=== PATIENT | female | born 1945 | race Hispanic/Latino ===

== ENCOUNTER 2020-02-11 07:19 | Outpatient (CLI) | payer MEDICARE, OTHER ==
[2020-02-11 16:43] LABS: #Eosinphils 0.2 thou/uL (0.0-0.7); #Lymphocytes 2.1 thou/uL (1.20-3.40); #Monocytes 0.6 thou/uL (0.11-0.59); #Neutrophils 4.6 thou/uL (1.40-6.50); %Basophils 0.6 % (0.0-1.0); %Eosinophils 2.4 % (0.0-10.0); %Lymphocytes 28.3 % (21.0-51.0); %Monocytes 7.8 % (0.0-10.0); %Neutrophils 60.9 % (42.0-75.0); Hemoglobin 13.8 g/dL (12.0-16.0); Mean Corpuscular HGB CONC 32.9 g/dL (32.0-36.0); Mean Corpuscular Hemoglobin 28.6 pg (27.0-31.0); Mean Corpuscular Volume 86.7 fL (78.0-98.0); Mean Platelet Volume 8.7 fL (7.4-10.4); Platelet Count 310 thou/uL (130-400); RBC Distribution Width 12.9 % (11.5-14.5); Red Blood Cell (RBC) Count 4.85 mill/uL (4.20-5.40); White Blood Cell (WBC) Count 7.5 thou/uL (4.8-10.8)
[2020-02-11 16:45] LABS: Prothrombin Time 13.4 sec (12.0-14.7)
[2020-02-11 17:14] LABS: Anion Gap 13 mmol/L (10-20); BUN (Urea Nitrogen) 19 mg/dL (9.8-20.1); Calc. Creatinine Clearance 0 mL/min (70-130); Calcium 9.3 mg/dL (7.8-10.44); Carbon Dioxide 23 mmol/L (23-31); Chloride 108 mmol/L (98-107); Estimated GFR-MDRD 80; Glucose 99 mg/dL (83-110); Potassium 4.3 mmol/L (3.5-5.1); Sodium 140 mmol/L (136-145)
[2020-02-12 12:15] LABS: SARS-CoV-2 MS2 Positive; SARS-CoV-2 N Gene Negative; SARS-CoV-2 S Gene Negative; SARS-CoV-2 orf1ab Negative
== END 2020-02-11 07:20 | disposition home or self-care (01) ==
LOC: LABBT 07:19
PROVIDERS: ATTEND Orthopaedic Surgery
DX: Z01.812 Encounter for preprocedural laboratory examination (principal); Z11.59 Encounter for screening for other viral diseases; M17.0 Bilateral primary osteoarthritis of knee
CPT/HCPCS: 80048; 85025; 85610; 87081; U0003; 87635; 93005; 93010

== ENCOUNTER 2020-02-15 05:55 | Observation (INO) | payer MEDICARE ==
[2020-02-10 11:44] VITALS: BMI 33.2
[2020-02-15] MEDS ORDERED: Fentanyl 100 MCG/2 ML VIAL ONE ×3 (06:25→09:37)
[2020-02-15] MEDS ORDERED: Midazolam HCl 2 mg/2 ml Vial ONE (06:25)
[2020-02-15] MEDS ORDERED: Vancomycin 1 GM/200 ML BAG ONE (06:36)
[2020-02-15] MEDS ORDERED: Tranexamic Acid 1,000 MG/10 ML VIAL ONE (06:36)
[2020-02-15] MEDS ORDERED: Sodium Chloride 0.9% 100 ML ONE (06:36)
[2020-02-15] MEDS ORDERED: Lidocaine 1% w/Epinephrine 1:100K 20 ML VIAL ONE (06:37)
[2020-02-15] MEDS ORDERED: Bupivacaine 0.25% HCL 30 ML VIAL ONE (06:37)
[2020-02-15] MEDS ORDERED: Zolpidem Tartrate 5 MG TAB PO PRN (07:06)
[2020-02-15] MEDS ORDERED: traMADol HCl 50 MG TAB PO PRN ×2 (07:06)
[2020-02-15] MEDS ORDERED: Ropivacaine HCl/PF 250 ML in Premix Bag 1 BAG NERVE BLCK SCH (07:06)
[2020-02-15] MEDS ORDERED: HYDROcodone/Acetaminophen 10/325 mg Tablet PO PRN (07:06)
[2020-02-15] MEDS ORDERED: Promethazine HCl 25 MG/ML VIAL IM PRN ×2 (07:06→09:20)
[2020-02-15] MEDS ORDERED: Fentanyl 100 MCG/2 ML VIAL IV PRN (07:06)
[2020-02-15] MEDS ORDERED: Ondansetron PF 4 MG/2 ML Vial IVP PRN (07:06)
[2020-02-15] MEDS ORDERED: diphenhydrAMINE 25 MG CAP PO PRN (09:17)
[2020-02-15] MEDS ORDERED: Acetaminophen 325 MG TAB PO PRN (09:17)
[2020-02-15] MEDS ORDERED: Promethazine HCl 25 MG/ML VIAL SLOW IVP PRN (09:20)
[2020-02-15] MEDS ORDERED: Ondansetron HCl/PF 4 MG/2 ML Vial IVP PRN (09:20)
--- NOTE | 2020-02-15 09:56 | RAD ---
XR Knee Lt 2 View HISTORY: Left TKA COMPARISON: None. FINDINGS: There are recent postoperative changes of total knee arthroplasty in good position and alig nment. Soft tissue air is present.
--- NOTE | 2020-02-15 10:39 | HP ---
HISTORY OF PRESENT ILLNESS: Ms. Jang is a 74-year-old female, who has failed conservative measures for bilateral knee osteoarthritis. Pain is from 5 to 10 out of 10. Weight reduction, anti-inflammatories, injections gave her relief, but have diminished in efficacy. The patient desires to have left total knee arthroplasty. PAST MEDICAL HISTORY: Bilateral knee pain. ALLERGIES: NO KNOWN ALLERGIES. MEDICATIONS: Meloxicam, Aleve. PAST SURGICAL HISTORY: None. SOCIAL HISTORY: Nonsmoker. No alcohol. The patient is retired. PHYSICAL EXAMINATION: GENERAL: An alert and oriented female, in no acute distress, resting in bed, Faroese speaking. EXTREMITIES: Left lower extremity, there is mild tenderness to palpation, passive range of motion 0 to 110, neurovascularly intact. Negative Homans. Antalgic gait. DIAGNOSTIC STUDIES: Previous radiographs show left knee osteoarthritic changes. ASSESSMENT AND PLAN: The patient has failed conservative measures, elected to proceed left knee arthroplasty. I discussed with her the risks and benefits of surgery. She understands the risks to include pain; scar; bleeding; infection; damage to vital structures; decreased range of motion or strength; fracture; failure of hardware; need for revision; damage to nerve, artery, tendon, muscle, bone; DVT , human and anesthesia complications. The patient understood the risks and benefits, elected to proceed. The patient will be taken to the operative suite today for left total knee arthroplasty. Job ID: [id number] [facility]
[2020-02-15] MEDS ORDERED: Ondansetron PF 4 MG/2 ML Vial ONE (11:24)
[2020-02-15] MEDS ORDERED: EPHEDRINE 25 MG/5 ML SYRINGE ONE (11:24)
[2020-02-15] MEDS ORDERED: Ketorolac Tromethamine 30 MG/ML VIAL ONE (11:24)
[2020-02-15] MEDS ORDERED: Dexamethasone 20 MG/5 ML VIAL ONE (11:24)
[2020-02-15] MEDS ORDERED: PROPOFOL 200 MG/20 ML VIAL ONE (11:24)
[2020-02-15] MEDS ORDERED: Ropivacaine 0.2% HCl/PF (40 MG/20 ML VIAL) ONE (11:25)
[2020-02-15] MEDS ORDERED: Bupivacaine HCl 0.5%/Epinephrine 1:200,000/PF 30 ml Vial ONE (11:25)
[2020-02-15] MEDS: Sodium Chloride 0.9% 1,000 ML IV SCH ×2 (11:53→20:48)
[2020-02-15] MEDS: Ketorolac Tromethamine 30 MG/ML VIAL IVP SCH ×3 (12:51→23:26)
--- NOTE | 2020-02-15 15:54 | OP ---
DATE OF PROCEDURE: 02/15/2020 PREOPERATIVE DIAGNOSIS: Left knee osteoarthritis. POSTOPERATIVE DIAGNOSIS: Left knee osteoarthritis. PROCEDURE PERFORMED: Left total knee arthroplasty. SURGEON: Ankit Walls MD WELLNESS GUIDE: Raissa Valentino. ANESTHESIA: [place]. The patient received an adductor canal catheter and iPACK. ESTIMATED BLOOD LOSS: Less than 100 mL. TOURNIQUET TIME: 74 minutes at 300 mmHg. ANTIBIOTICS: Ancef 2 g, vancomycin 1.1 g, TXA 1 g. IMPLANTS: The patient received a Triathlon size 2 tibial base plate, a 2 CS x 13 mm poly, a size 2 CR femur, and an S27 Triathlon patella. COMPLICATIONS: PCL transection. HISTORY OF PRESENT ILLNESS: Ms. Jang is a 74-year-old female, who presents with bilateral knee osteoarthritis. The patient has limitations of night pain. Pain is severe. She has failed conservative measures. I discussed with her the risks and benefits of left total knee arthroplasty to include pain, scar, bleeding, infection, damage to vital structures, decreased range of motion and strength, continued pain despite surgical intervention, loss of life or limb. The patient understood the risks and benefits of the procedure and elected to proceed. DESCRIPTION OF PROCEDURE: Time-out was performed designating the patient's left lower extremity as the operative site based on site, consents, and marking. After time-out, the patient left lower extremity was prepped and draped in sterile fashion. Tourniquet was brought up and left for a total of 74 minutes. Anterior midline procedure was placed, dissected down and did a medial patellar arthrotomy, everted, took the fat pad, did medial soft tissue release of the superficial PCL. We everted the patella, brought the femur up in position. We took the synovium and muscle off the distal femur and exposed distal half of it for cut and sizing. We pinned our femur into place. We cut 8, 9, 0 degrees of varus and valgus and 4 degrees of slope, just a mild notching, removed all the bone and osteophytes, placed our 3-degree external rotation guide into position. We mapped. We first thought there was about 3 to 2, so we pinned a 3 tray, cut the anterior cut and moved back to 2. We cut the anterior, posterior, and chamfer cuts. On one of the cuts, the PCL, was injured, damaged in the cut, the side cut with a posterior cut, and was transected. With pickle fork, removed all the bone spurs and osteophytes from the distal femur and our cuts, anterior, posterior, and chamfer cuts, we placed the pickle fork, exposed the patient's tibia, pinned the tibial tray into place. We cut it at 2, 4, 0 degrees of varus and valgus and 4 degrees of slope, removed the bone. We did a medial decompression, there was a large medial osteophyte, which gave us some medial laxity. Being happy with our tibia, we then placed our lamina spreaders, removed bone spurs and osteophytes, all menisci, ACL, and PCL that previously had been transected. We then pinned our tray into position in line with the tibia but measured one-third down the tibia. We placed an 11, moved up to a 13 poly. The patient had just 1+ varus laxity, stable anterior-posterior drawer, had good extension, and good stability laterally. We then moved backed. We drilled our lugs for our femur, cut our keel for our tibia. Removed all the implants. We had everted our patella and cut it down from about 20 down to about 11, put an S27, which tracked well. We then removed all the implants, washed. We placed the tibia, removed the excess cement, placed the poly, placed the femur, removed excess cement. We placed the patella, removed excess cement. Washed, ensured all the cement was removed and we then placed the patient in a flexed position, closed our arthrotomy with 2 Vicryl, 2 Stratafix, 0 Stratafix, 2-0 Stratafix, and glue. The patient can be weightbear as tolerated, will be followed inhouse. Job ID: [id number] [facility]
[2020-02-15] MEDS: CEFAZOLIN 2 GM in Premix Bag 1 BAG IVPB SCH ×2 (16:04→23:24)
[2020-02-15] MEDS ORDERED: Vancomycin 1 GM in Premix Bag 1 BAG IVPB SCH (20:00)
[2020-02-15] MEDS: Aspirin 81 mg Enteric Coated Tablet PO SCH (20:44)
[2020-02-16] MEDS: Ketorolac Tromethamine 30 MG/ML VIAL IVP SCH ×3 (05:58→17:59)
[2020-02-16] MEDS: Sodium Chloride 0.9% 1,000 ML IV SCH ×2 (05:59→14:17)
[2020-02-16] MEDS: HYDROcodone/Acetaminophen 10/325 mg Tablet PO PRN ×2 (06:31→14:47)
[2020-02-16 07:57] LABS: Hemoglobin 12.2 g/dL (12.0-16.0); Mean Corpuscular Hemoglobin 29.2 pg (27.0-31.0); Mean Corpuscular Volume 88.6 fL (78.0-98.0); Mean Platelet Volume 8.2 fL (7.4-10.4); Platelet Count 255 thou/uL (130-400); RBC Distribution Width 12.7 % (11.5-14.5); Red Blood Cell (RBC) Count 4.18 mill/uL (4.20-5.40); White Blood Cell (WBC) Count 12.7 thou/uL (4.8-10.8)
[2020-02-16] MEDS: Ferrous Gluconate 324 MG TAB PO SCH ×2 (09:19→17:59)
[2020-02-16] MEDS: Senokot S 8.6-50 MG TAB PO SCH ×2 (09:19→20:17)
[2020-02-16] MEDS: Multivitamin W/ Minerals 1 TAB PO SCH (09:19)
[2020-02-16] MEDS: Aspirin 81 mg Enteric Coated Tablet PO SCH ×2 (09:19→20:17)
--- NOTE | 2020-02-16 10:02 | PDOC.HOSPP ---
- Subjective Encounter Date: 02/15/20 Encounter Time: 16:00 Subjective: pt up in bed no complains - Objective Vital Signs & Weight: Vital Signs (12 hours) Temp Pulse Resp BP Pulse Ox 02/16/20 07:17 98.6 F 70 16 88/54 L 93 L 02/16/20 05:51 97.5 F L 86 16 150/79 H 94 L 02/16/20 00:01 83 16 143/75 H 96 Weight Weight 170 lb I&O: 02/15/20 02/16/20 02/17/20 06:59 06:59 06:59 Output Total 600 Balance -600 Result Diagrams: 02/16/20 07:07 Hospitalist ROS - Review of Systems Cardiovascular: denies: chest pain, palpitations, orthopnea, paroxysmal noc. dyspnea, edema, light headedness, other Gastrointestinal: denies: nausea, vomiting, abdominal pain, diarrhea, constipation, melena, hematochezia, other Genitourinary: denies: dysuria, frequency, incontinence, hematuria, retention, other - Medication Medications: Active Medications Generic Name Dose Route Start Last Admin Trade Name Freq PRN Reason Stop Dose Admin Hydrocodone Bitart/Acetaminophen 2 tab 02/15/20 07:06 02/16/20 06:31 Romulus 10/325 PO 2 tab Q4H PRN Administration PAIN (4-6) Aspirin 81 mg 02/15/20 21:00 02/16/20 09:19 Ecotrin PO 81 mg BID SERENA Administration Ferrous Gluconate 324 mg 02/16/20 08:00 02/16/20 09:19 Fergon PO 324 mg BID-WM SERENA Administration Ropivacaine 250 ml/ Device 250 mls @ 0 mls/hr 02/15/20 07:06 02/16/20 09:02 NERVE BLCK 02/17/20 07:07 250 mls INF SERENA Administration As Directed Sodium Chloride 1,000 mls @ 100 mls/hr 02/15/20 09:30 02/16/20 05:59 Normal Saline 0.9% IV Not Given .Q10H SERENA Iron/Minerals/Multivitamins 1 tab 02/16/20 09:00 02/16/20 09:19 Theragran M PO 1 tab DAILY SERENA Administration Ketorolac Tromethamine 15 mg 02/15/20 12:00 02/16/20 05:58 Toradol IVP 02/17/20 06:01 15 mg Q6HR SERENA Administration Senna/Docusate Sodium 2 tab 02/16/20 09:00 02/16/20 09:19 Senokot S PO 2 tab BID SERENA Administration Sodium Chloride 10 ml 02/15/20 09:00 02/16/20 09:19 Flush - Normal Saline IVF 10 ml Q12HR SERENA Administration - Exam Neck: negative: supple, symmetric, no JVD, no thyromegaly, no lymphadenopathy, no carotid bruit, JVD Heart: negative: RRR, no murmur, no gallops, no rubs, normal peripheral pulses, irregular, diminshed peripheral pulses, murmur present, II/IV, III/IV Respiratory: negative: CTAB, no wheezes, no rales, no ronchi, normal chest expansion, no tachypnea, normal percussion, rales, rhonchi, tachypneic, wheezes Hosp A/P (1) Status post left knee replacement Code(s): Z96.652 - PRESENCE OF LEFT ARTIFICIAL KNEE JOINT Status: Acute (2) Obesity Code(s): E66.9 - OBESITY, UNSPECIFIED Status: Acute - Plan pt's bp is mildly elevated most likely transient. she is not on any home meds except aleve. dvt ppx and pain per surgery.
[2020-02-16] MEDS ORDERED: Prevnar 13-Val Conj/PF 0.5 ML SYRINGE IM ONE (12:30)
--- NOTE | 2020-02-16 14:26 | PDOC.EVN ---
Event Note - Event Note Event Note: Chart reviewed for Utilization management and pt does not meet criteria for IP status. Reviewed with Orthopedics, and support change to Observation status, condition code 44.
[2020-02-17] MEDS: Ketorolac Tromethamine 30 MG/ML VIAL IVP SCH ×2 (00:07→05:38)
[2020-02-17] MEDS: Sodium Chloride 0.9% 1,000 ML IV SCH ×2 (02:34→09:47)
[2020-02-17] MEDS: HYDROcodone/Acetaminophen 10/325 mg Tablet PO PRN ×3 (03:36→13:32)
--- NOTE | 2020-02-17 05:27 | PRG ---
DATE OF SERVICE: 02/16/2020 ADDENDUM: This is an addendum to the progress note for today. The patient is postoperative day #1 status post right total knee arthroplasty. She does not meet inpatient criteria and therefore has been changed to observation status. Job ID: [id number]
[2020-02-17 06:06] LABS: Hemoglobin 11.1 g/dL (12.0-16.0); Mean Corpuscular HGB CONC 31.5 g/dL (32.0-36.0); Mean Corpuscular Hemoglobin 27.8 pg (27.0-31.0); Mean Corpuscular Volume 88.2 fL (78.0-98.0); Mean Platelet Volume 8.2 fL (7.4-10.4); Platelet Count 236 thou/uL (130-400); Red Blood Cell (RBC) Count 3.99 mill/uL (4.20-5.40); White Blood Cell (WBC) Count 11.7 thou/uL (4.8-10.8)
[2020-02-17] MEDS: Aspirin 81 mg Enteric Coated Tablet PO SCH (09:06)
[2020-02-17] MEDS: Ferrous Gluconate 324 MG TAB PO SCH (09:06)
[2020-02-17] MEDS: Multivitamin W/ Minerals 1 TAB PO SCH (09:06)
[2020-02-17] MEDS: Senokot S 8.6-50 MG TAB PO SCH (09:06)
[2020-02-17 15:22] VITALS: BP 132/67; TEMP 98.5
== END 2020-02-17 16:12 | disposition home or self-care (01) ==
LOC: SDC 05:55 → INTOOBSV 09:21 → SJJU 09:21
PROVIDERS: ADMIT Orthopaedic Surgery; ATTEND Orthopaedic Surgery
PROC: 0SRD0J9 Replacement of Left Knee Joint with Synthetic Substitute, Cemented, Open Approach (ICD-10-PCS; principal; 2020-02-15)
PROC: 3E0T3BZ Introduction of Anesthetic Agent into Peripheral Nerves and Plexi, Percutaneous Approach (ICD-10-PCS; 2020-02-15)
DX: M17.0 Bilateral primary osteoarthritis of knee (principal); G89.18 Other acute postprocedural pain; E66.9 Obesity, unspecified; Z68.33 Body mass index [BMI] 33.0-33.9, adult
CPT/HCPCS: 27447; 64448; 73560; 85027 ×2; 97110 ×2; 97116 ×2; 97139; 97530 ×2; C1713; C1776; 36415; 96374; 96376; G0378; J0670; J0690; J1100; J1885; J2250; J2405; J2704; J2795; J3010; J3370; J3490; S0020

== ENCOUNTER 2022-03-08 13:34 | Outpatient (CLI) | payer MEDICARE | END 2022-03-08 13:35 | disposition home or self-care (01) | LOC: BICMAMMO 13:34 | PROVIDERS: ATTEND Family Medicine | DX: Z13.820 Encounter for screening for osteoporosis (principal); M54.6 Pain in thoracic spine | CPT/HCPCS: 77080 ==

== ENCOUNTER 2023-03-14 11:16 | Emergency (ER) | payer MEDICARE ==
[2023-03-14] MEDS ORDERED: HYDROcodone/Acetaminophen 5/325 mg Tablet ONE (12:04)
== END 2023-03-14 12:36 | disposition home or self-care (01) ==
LOC: ERS 11:16
DX: S09.90XA Unspecified injury of head, initial encounter (principal); S16.1XXA Strain of muscle, fascia and tendon at neck level, initial encounter; S40.021A Contusion of right upper arm, initial encounter; W18.30XA Fall on same level, unspecified, initial encounter